=== PATIENT | male | born 1990 | race Caucasian/White ===

== ENCOUNTER 2023-03-21 10:08 | Emergency (ER) | payer SELFPAY ==
[2023-03-21 10:16] VITALS: RESP 18; BMI 41.5
[2023-03-21] MEDS ORDERED: SODIUM CHLORIDE 0.9% 500 ML INFUS.BAG IV ONE (11:08)
[2023-03-21] MEDS ORDERED: KETOROLAC TROMETHAMINE 15 MG/ML VIAL IVPUSH ONE (11:08)
[2023-03-21] MEDS ORDERED: KETOROLAC TROMETHAMINE 15 MG/ML VIAL ONE (11:30)
[2023-03-21 11:35] LABS: BASO % 0.3 % (0-2.0); EOS % 1.3 % (0-4.5); HEMATOCRIT 40.6 % (35.4-49); HEMOGLOBIN 13.8 GM/dL (11.7-16.9); LYMPH % 22.1 % (8-40); MCH 29.4 pg (25.7-33.7); MEAN CELL VOLUME 86.3 fl (80-96); MEAN PLT VOLUME 7.6 fl (7.5-11.1); MONO % 8.3 % (3.8-10.2); PLATELET COUNT 297 10^3/uL (134-434); RBC 4.71 M/mm3 (4.00-5.60); RDW 13.4 % (11.9-15.9); WHITE BLOOD COUNT 6.8 K/mm3 (4.0-10.0)
[2023-03-21 11:38] LABS: EPI CELLS 2 /uL (0-25.1); HYALINE CASTS 1 /uL (0-3.1); PH,URINE 5.5 (5.0-8.0); URINE APPEARANCE CLEAR; URINE BACTERIA 10 /uL (0-1359); URINE BILIRUBIN NEGATIVE (NEGATIVE); URINE COLOR YELLOW; URINE GLUCOSE (UA) NEGATIVE (NEGATIVE); URINE KETONE NEGATIVE (NEGATIVE); URINE LEUK ESTERASE NEGATIVE (NEGATIVE); URINE NITRITE NEGATIVE (NEGATIVE); URINE PROTEIN 2+ (NEGATIVE); URINE RBC 190 /uL (0-23.9); URINE UROBILINOGEN 0.2 mg/dL (0.2-1.0); URINE WBC 10 /uL (0-25.8)
[2023-03-21 11:51] LABS: POTASSIUM 4.1 mmol/L (3.5-5.1)
[2023-03-21 11:53] LABS: CALCIUM 9.4 mg/dL (8.5-10.1)
[2023-03-21 11:54] LABS: BLOOD UREA NITROGEN 16.8 mg/dL (7-18)
[2023-03-21 11:57] LABS: CREATININE 0.9 mg/dL (0.55-1.3)
[2023-03-21 11:58] LABS: BILIRUBIN,TOTAL 0.3 mg/dL (0.2-1)
[2023-03-21 11:59] LABS: TOT PROT 8.2 g/dl (6.4-8.2)
[2023-03-21 13:02] VITALS: BP 109/68; PULSE 77; TEMP 97.8
== END 2023-03-21 13:13 | disposition home or self-care (01) ==
LOC: JER 10:08
PROC: 3E0333Z Introduction of Anti-inflammatory into Peripheral Vein, Percutaneous Approach (ICD-10-PCS; principal; 2023-03-21)
DX: R10.31 Right lower quadrant pain (principal); R39.15 Urgency of urination; N20.0 Calculus of kidney; R30.0 Dysuria
CPT/HCPCS: 36415; 80053; 81003; 85025; 87086; 99284-25

== ENCOUNTER 2023-10-13 13:51 | Emergency (ER) | payer OTHER ==
[2023-10-13 14:15] VITALS: BP 105/68; PULSE 75; RESP 20; TEMP 97.5; BMI 41.5
[2023-10-13] MEDS ORDERED: KETOROLAC TROMETHAMINE 15 MG/ML VIAL ONE (14:56)
[2023-10-13] MEDS ORDERED: LIDOCAINE 4% PATCH TP ONE (14:56)
[2023-10-13] MEDS: KETOROLAC TROMETHAMINE 15 MG/ML VIAL IM ONE (15:08)
[2023-10-13] MEDS: LIDOCAINE 5% TOPICAL PATCH TP ONE (15:08)
[2023-10-13] MEDS ORDERED: LIDOCAINE PATCH REMOVAL MC SCH (22:00)
== END 2023-10-13 15:56 | disposition home or self-care (01) ==
LOC: JER 13:51
PROC: 3E0133Z Introduction of Anti-inflammatory into Subcutaneous Tissue, Percutaneous Approach (ICD-10-PCS; principal; 2023-10-13)
DX: S29.011A Strain of muscle and tendon of front wall of thorax, initial encounter (principal); R07.89 Other chest pain; M25.512 Pain in left shoulder; Y93.64 Activity, baseball
CPT/HCPCS: 71046-TC-FY; 93005; 93010; 99284-25

== ENCOUNTER 2024-01-18 19:26 | Emergency (ER) | payer OTHER ==
[2024-01-18 19:46] VITALS: BP 113/67; PULSE 101; RESP 18; TEMP 99.1; BMI 38.7
[2024-01-18] MEDS ORDERED: IBUPROFEN 600 MG TABLET (FP) PO ONE (20:06)
[2024-01-18] MEDS: IBUPROFEN 600 MG TABLET (FP) PO ONE (20:17)
[2024-01-18] MEDS ORDERED: KETOROLAC TROMETHAMINE 30 MG/1 ML VIAL ONE (20:36)
[2024-01-18] MEDS: KETOROLAC TROMETHAMINE 30 MG/1 ML VIAL IM ONE (20:40)
[2024-01-18 21:07] LABS: THROAT:GRP A STREP NOT DETECTED (NOTDETECTED)
== END 2024-01-18 21:38 | disposition home or self-care (01) ==
LOC: JERFT 19:26 → JER 19:26 → JERFT 21:38
PROC: 3E0133Z Introduction of Anti-inflammatory into Subcutaneous Tissue, Percutaneous Approach (ICD-10-PCS; principal; 2024-01-18)
DX: J02.9 Acute pharyngitis, unspecified (principal); R50.9 Fever, unspecified; R51.9 Headache, unspecified; Z20.822 Contact with and (suspected) exposure to COVID-19
CPT/HCPCS: 0241U-QW; 87651; 99283-25

== ENCOUNTER 2025-01-06 16:19 | Emergency (ER) | payer SELFPAY ==
[2025-01-06 16:27] VITALS: BP 128/73; PULSE 94; RESP 18; TEMP 98.3; BMI 38.7
== END 2025-01-06 19:00 | disposition home or self-care (01) ==
LOC: JER 16:19
DX: S00.03XA Contusion of scalp, initial encounter (principal); W01.198A Fall on same level from slipping, tripping and stumbling with subsequent striking against other object, initial encounter; Y92.830 Public park as the place of occurrence of the external cause; Y93.02 Activity, running
CPT/HCPCS: 70450-TC; 72125-TC; 99284-25